=== PATIENT | male | born 1980 | race Caucasian/White ===

== ENCOUNTER 2021-10-06 20:17 | Emergency (ER) | payer MEDICAID ==
[~2021-10-06] VITALS: Ht 170.2 cm; Wt 83.6 kg
[2021-10-06 20:33] VITALS: TEMP 98.9
[2021-10-06 21:36] LABS: BASO % 0.4 % (0.0-2.0); GRAN # 1.6 K/mm3 (1.4-6.5); GRAN % 59.8 % (42.2-75.2); HEMOGLOBIN 14.6 g/dl (13.5-18.0); LYMPH # 0.5 K/mm3 (1.2-3.4); LYMPH % 19.9 % (20.0-51.0); MEAN CELL VOLUME 86 fl (80.0-100.0); MEAN CORPUSCULAR HEMOGLOBIN 30 pg (27-31); MEAN CORPUSCULAR HGB CONC 35 g/dl (33.0-37.0); MEAN PLATELET VOLUME 10.1 fl (7.4-10.4); MONO # 0.5 K/mm3 (0.1-0.6); MONO % 19.5 % (1.7-9.3); PLATELET COUNT 172 K/mm3 (130-400); REDCELL DISTRIBUTION WIDTH-CV 12.8 % (11.5-14.5)
[2021-10-06 21:42] LABS: ALBUMIN 4.5 gm/dL (3.5-5.0); BILIRUBIN,TOTAL 0.5 mg/dL (0.2-1.2); CALCIUM 9.3 mg/dL (8.4-10.2); CREATININE, serum 0.95 mg/dL (0.72-1.25); POTASSIUM 3.5 mmol/L (3.5-4.5); TOTAL PROTEIN 7.9 gm/dL (6.2-8.1)
[2021-10-06] MEDS ORDERED: ZOFRAN ODT4 MG PO (21:50)
[2021-10-06 22:00] VITALS: BP 124/65; PULSE 80
== END 2021-10-06 22:15 | disposition home or self-care (01) ==
LOC: COL.ER 20:17
PROVIDERS: Family Medicine
DX: U07.1 COVID-19 (principal); Z87.891 Personal history of nicotine dependence; Z28.310 Unvaccinated for COVID-19
CPT/HCPCS: J7030